=== PATIENT | female | born 1970 | race Caucasian/White ===

== ENCOUNTER 2023-10-31 15:04 | Emergency (ER) | payer BC, OTHER ==
[2023-10-31 15:42] VITALS: RESP 20; TEMP 97.2; O2SAT 96
--- NOTE | 2023-10-31 17:06 | ERPHSYRPT ---
- History of Present Illness Time Seen by Provider: 10/31/23 15:12 Source: patient Exam Limitations: no limitations Patient Subjective Stated Complaint: Pt states "I was walking in my house yesterday and my right knee gave out and I hurt my right knee." Triage Nursing Assessment: Pt presented alert and oriented X 3, skin wpd. Pt right knee swollen and tender. CSM X 4 Physician History: 53-year-old female with history of anxiety/depression presented in the ER with complaint of right knee pain after her right knee gave away last night. Does not report hitting her knee but it started to swell and almost doubled the size of the left 1. Moderate intensity sharp pain with movements and weightbearing extremely difficult. Patient had crutches at home which and she has been using. Allergies/Adverse Reactions: Sulfa (Sulfonamide Antibiotics) Adverse Reaction (Severe, Verified 10/31/23 15:22) nosebleed codeine Adverse Reaction (Intermediate, Verified 10/31/23 15:22) nasuea vomiting Hx Tetanus, Diphtheria Vaccination/Date Given: Yes Hx Influenza Vaccination/Date Given: No Hx Pneumococcal Vaccination/Date Given: No Immunizations Up to Date: No Travel Risk - International Travel Have you traveled outside of the country in past 3 weeks: No - Emerging Infectious Disease Are you exhibiting symptoms associated with any current EIDs: No - Review of Systems Constitutional: No Symptoms Ears, Nose, & Throat: No Symptoms Respiratory: No Symptoms Cardiac: No Symptoms Abdominal/Gastrointestinal: No Symptoms Musculoskeletal: Joint Pain, Joint Swelling Skin: No Symptoms Neurological: No Symptoms Endocrine: No Symptoms - Past Medical History Pertinent Past Medical History: Yes Psycho-Social History: Anxiety, Depression - Past Surgical History Past Surgical History: Yes Gastrointestinal: Appendectomy - Female History Hx Last Menstrual Period: menopause Hx Now: No (N) - Social History Smoking Status: Never smoker Exposure to second hand smoke: No Drug Use: none - Social Determinants of Health Will the patient participate in the screening: Declined to provide - Nursing Vital Signs Nursing Vital Signs: Initial Vital Signs Temperature 97.2 F 10/31/23 15:16 Pulse Rate 80 10/31/23 15:16 Respiratory Rate 20 10/31/23 15:16 Blood Pressure 133/81 10/31/23 15:16 O2 Sat by Pulse Oximetry 96 10/31/23 15:16 Pain Scale Pain Intensity 4 - Physical Exam General Appearance: no apparent distress, alert Neck Exam: normal inspection, full range of motion Cardiovascular/Respiratory Exam: normal breath sounds, regular rate/rhythm Knees Exam: right knee: bone tenderness, joint effusion, pain, soft tissue tenderness, swelling, left knee: non-tender, normal inspection, normal range of motion, no evidence of injury Ankle Exam: bilateral ankle: non-tender, normal inspection, normal range of motion, no evidence of injury Neuro/Tendon Exam: normal sensation, normal motor functions, normal tendon functions Mental Status Exam: alert, oriented x 3, cooperative Skin Exam: normal color SpO2 Interpretation: normal SpO2: 96 O2 Delivery: Room Air Ordered Tests: Active Orders 24 hr Category Date Time Status KNEE (3 VIEWS) Stat Exams 10/31/23 16:25 Taken - Progress Progress: improved, pain not gone completely Progress Note: 10/31/23 17:02 53-year-old is evaluated in the ER for right knee pain after it gave way last night with subsequent swelling and difficulty movements and weightbearing. Patient is given symptomatic treatment for pain, on reevaluation her pain is better but not completely resolved. I have obtained x-rays which are negative for fracture dislocation. Patient does have effusion. I have recommended knee immobilizer but no immobilizer of her sizes available in the hospital. Placed in Valentin wrap. Recommended not bending, nonweightbearing and outpatient orthopedic follow-up. I have offered her narcotic pain medication but she does not want anything but NSAIDs. Recommended intermittent ice application. Discussed signs symptoms of worsening needing return to ER which he seems understanding. Stable for discharge. Counseled pt/family regarding: diagnosis, need for follow-up, rad results Medical Desision Making - Diagnostic Testing Diagnostic test were ordered, analyzed, and reviewed by me: Yes Radiological Interpretation: Interpreted by me, Reviewed by me - Risk of complications The pt has a mod risk of morbidity or mortality based on: Need for prescription drug management - Departure Departure Disposition: Home Clinical Impression: Right knee sprain Condition: Stable Critical Care Time: No Referrals: KARL CHEW [Primary Care Provider] - Follow up with PCP 1 day GREG CAMPOS MD [ACTIVE STAFF] - Follow up/PCP as directed (call for appointment) Instructions: Knee Sprain (DC) Additional Instructions: Intermittent ice application. Tylenol/ibuprofen as needed. Nonweightbearing. Follow-up with orthopedics for reevaluation early next week. Return to ER for any worsening. Prescriptions: Ibuprofen 600 mg PO Q6HPRN PRN 10 Days #20 tablet PRN Reason: Pain
[2023-10-31 17:08] VITALS: BP 136/76; PULSE 76
--- NOTE | 2023-11-02 09:46 | XRAY ---
Indication: Pain and swelling following fall. Comparison: None 3 view right knee demonstrates osteopenia, tiny infrapatella spurring, small posterior fabella, and small nonspecific effusion. No other bony, articular, or soft tissue abnormalities.
== END 2023-10-31 17:24 | disposition home or self-care (01) ==
LOC: ED 15:04
DX: S83.91XA Sprain of unspecified site of right knee, initial encounter (principal)
CPT/HCPCS: 73562; 99283